=== PATIENT | male | born 1985 | race Caucasian/White ===

== ENCOUNTER 2018-07-23 08:25 | Day surgery (SDC) | payer BC ==
[2018-07-21 14:32] VITALS: BMI 28.7
[~2018-07-23 08:25] MED LIST: LACTATED RINGERS 1,000 ML IV SCH
[2018-07-23 08:44] VITALS: RESP 16; TEMP 97.8
[2018-07-23] MEDS ORDERED: PROPOFOL 10 MG/ML 20 ML VIAL IV ONE (09:36)
--- NOTE | 2018-07-23 09:54 | P.PCN ---
Date of Procedure: 07/23/18 Procedure(s) Performed: BRIEF HISTORY: Patient is a 32 to-year-old pleasant male, scheduled for an elective colonoscopy as a part of surveillance of long-standing history of ulcerative colitis diagnosed in 2009. He remains in clinical remission. PROCEDURE PERFORMED: Colonoscopy with biopsy. PREOPERATIVE DIAGNOSIS: Long-standing history of ulcerative colitis. IV sedation per Anesthesia. PROCEDURE: After informed consent was obtained, the patient, was brought into the endoscopy unit. IV sedation was administered by Anesthesia under continuous monitoring. Digital rectal examination was normal. Initially the Olympus CF- 160 flexible video colonoscope was then inserted in the rectum, gradually advanced into the cecum without any difficulty. Careful examination was performed as the scope was gradually being withdrawn. Ileocecal valve and the appendiceal orifice were visualized and appeared normal. Prep was excellent. Mucosa of the cecum, ascending colon, transverse colon, descending colon appeared normal. Mucosa of the, sigmoid colon, and rectum had mild erythema noted with loss of mucosal vascularity and haustrations consistent with mild active colitis. Random biopsies were done at every 10 cm intervals from the rectum to the cecum. Retroflexion was performed in the rectum and no lesions were seen. The patient tolerated the procedure well. IMPRESSION: Minimal erythema in the rectum and sigmoid colon but no erosions or ulcerations seen. Rest of the colon appeared normal. RECOMMENDATIONS: Findings of this examination were discussed with the patient as his family. He was advised to follow with the biopsy results. He will continue with Lialda 4 tablets daily area and he will follow with the biopsy results. If the biopsy has no evidence of dysplasia, he can have a repeat colonoscopy 2 years.
[2018-07-23 10:13] VITALS: BP 100/69; PULSE 60
== END 2018-07-23 10:38 | disposition home or self-care (01) ==
LOC: ORWHC2ENDO 08:25
PROVIDERS: ATTEND Internal Medicine Gastroenterology
DX: K51.90 Ulcerative colitis, unspecified, without complications (principal); I10 Essential (primary) hypertension; Z79.899 Other long term (current) drug therapy
CPT/HCPCS: 88305; 45380; J2704

== ENCOUNTER 2020-08-24 10:52 | Day surgery (SDC) | payer BC ==
[2020-08-22 09:11] VITALS: BMI 29.3
[2020-08-24] MEDS ORDERED: LIDOCAINE 1% (10MG/ML) FOR IV START INTRADERMA ONE (11:45)
[2020-08-24 11:55] VITALS: TEMP 98
[2020-08-24] MEDS ORDERED: PROPOFOL 10 MG/ML 20 ML VIAL IV ONE (12:42)
--- NOTE | 2020-08-24 12:55 | P.PCN ---
Date of Procedure: 08/24/20 Procedure(s) Performed: BRIEF HISTORY: Patient is a 34-year-old pleasant white male with long-standing history of ulcerative colitis is scheduled for surveillance of long-standing history of ulcerative colitis diagnosed in 2009. He remains in clinical remission. PROCEDURE PERFORMED: Colonoscopy with biopsy. PREOPERATIVE DIAGNOSIS: Long-standing history of ulcerative colitis. IV sedation per Anesthesia. PROCEDURE: After informed consent was obtained, the patient, was brought into the endoscopy unit. IV sedation was administered by Anesthesia under continuous monitoring. Digital rectal examination was normal. Initially the Olympus CF-160 flexible video colonoscope was then inserted in the rectum, gradually advanced into the cecum without any difficulty. Careful examination was performed as the scope was gradually being withdrawn. Ileocecal valve and the appendiceal orifice were visualized and appeared normal. Prep was excellent. Mucosa of the cecum appeared normal. There was mucosal erythema and granularity noted in the, ascending colon, transverse colon, descending colon consistent mild active colitis and biopsies were done from this area. Mucosa of the, sigmoid colon, and rectum appeared normal. Retroflexion was performed in the rectum and no lesions were seen. The patient tolerated the procedure well. IMPRESSION: Mild active colitis with mucosal erythema and granularity noted in the ascending colon, transverse colon and descending colon. Rest of the colon appeared normal RECOMMENDATIONS: Findings of this examination were discussed with the patient as well as his family. He was advised to follow with the biopsy results. He will increase the Lialda 4 tablets daily. If the biopsy shows evidence of active colitis will consider immunomodulating therapy.
[2020-08-24 12:59] VITALS: BP 105/68; PULSE 93; RESP 16
== END 2020-08-24 13:34 | disposition home or self-care (01) ==
LOC: ORWHC2ENDO 10:52
PROVIDERS: ATTEND Internal Medicine Gastroenterology
DX: K51.011 Ulcerative (chronic) pancolitis with rectal bleeding (principal); I10 Essential (primary) hypertension; Z79.1 Long term (current) use of non-steroidal anti-inflammatories (NSAID); Z79.899 Other long term (current) drug therapy
CPT/HCPCS: 88305; 45380; J2704

== ENCOUNTER 2023-05-01 11:41 | Day surgery (SDC) | payer BC, OTHER ==
[2023-04-29 12:44] VITALS: BMI 29.5
[2023-05-01] MEDS ORDERED: LIDOCAINE 1% (10MG/ML) FOR IV START INTRADERMA PRN (13:22)
[2023-05-01] MEDS ORDERED: LACTATED RINGERS 1,000 ML IV SCH (13:22)
[2023-05-01] MEDS ORDERED: PROPOFOL 10 MG/ML 20 ML VIAL IV ONE (14:03)
--- NOTE | 2023-05-01 14:17 | P.PCN ---
Date of Procedure: 05/01/23 Procedure(s) Performed: BRIEF HISTORY: Patient is a 37-year-old pleasant white male scheduled for an elective colonoscopy as a part of ascending history of ulcerative colitis diagnosed in 2009. He is presently maintained on Humira every 2 weeks and in clinical remission. PROCEDURE PERFORMED: Colonoscopy with random biopsies. PREOPERATIVE DIAGNOSIS: Long-standing history of ulcerative colitis. IV sedation per Anesthesia. PROCEDURE: After informed consent was obtained, the patient, was brought into the endoscopy unit. IV sedation was administered by Anesthesia under continuous monitoring. Digital rectal examination was normal. Initially the Olympus CF-160 flexible video colonoscope was then inserted in the rectum, gradually advanced into the cecum without any difficulty. Careful examination was performed as the scope was gradually being withdrawn. Ileocecal valve and the appendiceal orifice were visualized and appeared normal. Prep was good.. Mucosa of the cecum, ascending colon, transverse colon, descending colon, sigmoid colon, and rectum appeared normal. Random biopsies were done from the cecum to rectum at every 10 cm into well. Retroflexion was performed in the rectum and no lesions were seen. The patient tolerated the procedure well. IMPRESSION: Normal-appearing colon from rectum to cecum with no evidence of active colitis or colorectal neoplasia. RECOMMENDATIONS: Findings of this examination were discussed with the patient as well as his family. Follow with the biopsy results. If the biopsies do not show any evidence of dysplasia, he can have a repeat coloscopy in 2 years. He was advised to continue with Humira injections every 2 weeks..
[2023-05-01 15:32] VITALS: BP 112/70; PULSE 64; RESP 16; TEMP 98
== END 2023-05-01 14:49 | disposition home or self-care (01) ==
LOC: ORWHC2ENDO 11:41
PROVIDERS: ATTEND Internal Medicine Gastroenterology
DX: K63.5 Polyp of colon (principal); I10 Essential (primary) hypertension; Z79.899 Other long term (current) drug therapy
CPT/HCPCS: 88305; 45380; J2704